=== PATIENT | female | born 1960 | race Caucasian/White ===

== ENCOUNTER 2018-05-06 10:43 | Day surgery (SDC) | payer BC ==
[~2018-05-06 10:43] MED LIST: ACETAMINOPHEN 1,000 MG/100 ML BTL IV ONE; CEFAZOLIN 2 Gram 2 GM/50 ML BAG IVPB ONE
[2018-05-06] MEDS ORDERED: MIDAZOLAM HCL 2MG/2ML VIAL IV ONE (10:44)
[2018-05-06] MEDS ORDERED: LIDOCAINE 1% W/EPI 1:200,000 MPF 30ML SQ ONE (10:44)
[2018-05-06] MEDS ORDERED: BUPIVACAINE 0.5% W/EPI MPF 30 ML VIAL IVP ONE (10:44)
[2018-05-06] MEDS ORDERED: LIDOCAINE 2% MDV (20MG/ML) 20ML VIAL IV ONE (10:44)
[2018-05-06] MEDS ORDERED: PROPOFOL 10 MG/ML VIAL IV ONE (10:44)
[2018-05-06] MEDS ORDERED: FENTANYL PF 100MCG/2ML VIAL IV ONE (10:44)
--- NOTE | 2018-05-07 10:20 | Operative Note ---
DATE OF SURGERY: 05/06/2018 PREOPERATIVE DIAGNOSIS: Prepatellar bursitis on the right. POSTOPERATIVE DIAGNOSIS: Prepatellar bursitis on the right. OPERATION: Excision of right prepatellar bursa. Staff Surgeon: Leonidas Israel MD Anesthesia: Local with sedation. Preparation: Chloraprep. Individual Considerations: None. PROCEDURE: The patient was taken to the operating room, placed supine on the operating room table. Her right knee was prepped and draped in the usual fashion. The patient had a midline approach to the prepatellar bursa. About a 6 cm incision was used. Skin was infiltrated with a 50/50 mixture of 0.5% Marcaine with epinephrine and 1% lidocaine with epinephrine. Sharp dissection carried down through the skin and dissection carried around through about a 4 cm diameter prepatellar bursa. There was some scarring within it but it was basically clear fluid with a little bit of blood-tinged hemosiderin within it. The entire bursa was excised. After irrigation, I just closed the skin with running 3-0 quill and a dressing was applied. The patient tolerated procedure well and was taken back to recovery room in good condition. There were no complications. ZENIA
== END 2018-05-06 14:12 | disposition home or self-care (01) ==
LOC: SUR 10:43
PROVIDERS: ATTEND Orthopaedic Surgery
DX: M70.41 Prepatellar bursitis, right knee (principal); N39.0 Urinary tract infection, site not specified
CPT/HCPCS: 27340; 01320; J3010; J0690